=== PATIENT | female | born 1940 | race Caucasian/White ===

== ENCOUNTER → 2017-11-09 14:18 | Outpatient (CLI) | payer MEDICARE, OTHER, SELFPAY | PROVIDERS: PCP Internal Medicine; Visit Provider Psychiatry & Neurology Psychiatry | DX: Z51.81 Encounter for therapeutic drug level monitoring (principal) | CPT/HCPCS: 93005 ==

== ENCOUNTER → 2018-08-15 09:50 | Outpatient (CLI) | payer MEDICARE, OTHER, SELFPAY ==
[2018-08-15 11:55] LABS: Add Manual Diff / Slide Review NO; Basophils Absolute Auto 100 /uL (0-100); Basophils Percent Auto 1.3 % (0-2); Eosinophils Absolute Auto 200 /uL (0-450); Eosinophils Percent Auto 4.3 % (2-4); Hematocrit 39.7 % (36-46); Hemoglobin 13.3 g/dL (12.0-16.0); Lymphocytes Absolute Auto 1100 /uL (1100-4500); Lymphocytes Percent Auto 21.8 % (25-40); Mean Corpuscular HGB Conc 33.4 % (30-36); Mean Corpuscular Hemoglobin 32.4 PG (26-34); Mean Corpuscular Volume 97.1 fL (80-100); Monocytes Absolute Auto 500 /uL (0-900); Neutrophils Absolute Auto 3300 /uL (1500-7000); Neutrophils Percent Auto 62.6 % (50-75); Platelet Count 254 X10^3/uL (150-400); Red Blood Cell Count 4.09 X10^6/uL (4.0-5.2); Red Cell Distribution Width 13.7 % (11.6-14.8); White Blood Cell Count 5.2 X10^3/uL (4.5-11.0)
[2018-08-15 12:09] LABS: Alanine Aminotransferase 29 IU/L (9-52); Albumin 4.2 g/dL (3.5-5.0); Albumin Globulin Ratio 1.5 (1.0-2.8); Alkaline Phosphatase 78 U/L (38-126); Aspartate Aminotransferase 35 IU/L (14-36); Bilirubin Total 0.6 mg/dL (0.2-1.3); Blood Urea Nitrogen 14 mg/dL (7-17); Calcium 9.5 mg/dL (8.4-10.2); Carbon Dioxide 29 mmol/L (22-32); Chloride 99 mmol/L (98-107); Cholesterol 298 mg/dL (140-199); Estimated Glomerular Filt Rate > 60.0 mL/min (>60); Globulin 2.8 g/dL (1.7-4.1); Glucose 82 mg/dL (80-110); HDL Cholesterol 101 mg/dL (40-60); HEMOLYSIS < 15 (0-50); LDL Cholesterol Calculated 185 mg/dL (<100); Potassium 3.9 mmol/L (3.4-5.1); Sodium 135 mmol/L (137-145); Triglycerides 62 mg/dL (35-150)
[2018-08-15 12:49] LABS: Thyroid Stimulating Hormone 0.32 uIU/mL (0.47-4.68)
[2018-08-15 12:55] LABS: Vitamin B12 > 1000 pg/mL (239-931)
[2018-08-16 15:07] LABS: RPR Screen Nonreactive (Nonreactive)
== END ==
PROVIDERS: PCP Internal Medicine; Visit Provider Internal Medicine
DX: R41.3 Other amnesia (principal); R07.9 Chest pain, unspecified
CPT/HCPCS: 36415; 80053; 80061; 82607; 84443; 85025; 86592

== ENCOUNTER → 2018-08-17 13:31 | Outpatient (CLI) | payer MEDICARE, OTHER, SELFPAY | PROVIDERS: PCP Internal Medicine; Visit Provider Internal Medicine | DX: M81.0 Age-related osteoporosis without current pathological fracture (principal); Z78.0 Asymptomatic menopausal state; E07.9 Disorder of thyroid, unspecified | CPT/HCPCS: 77080 ==

== ENCOUNTER → 2018-09-05 11:22 | Outpatient (CLI) | payer MEDICARE, OTHER, SELFPAY ==
--- NOTE | 2018-09-05 | DI.MG.S_ITS ---
BILATERAL DIGITAL SCREENING MAMMOGRAM 3D/2D WITH CAD: 09/05/2018 CLINICAL: Routine screening. Comparison is made to exams dated: 03/15/2014 mammogram, 02/07/2013 mammogram, and 02/01/2013 mammogram - [facility]. There are scattered fibroglandular elements in both breasts. Current study was also evaluated with a Computer Aided Detection (CAD) system. There is a mole marker on the right breast. No significant masses, calcifications, or other findings are seen in either breast. There has been no significant interval change. IMPRESSION: NEGATIVE There is no mammographic evidence of malignancy. A 1 year screening mammogram is recommended. This exam was interpreted at Station ID: [id number]. NOTE: For mammograms, a report in lay terms will be sent to the patient. Approximately 15% of breast malignancies will not be visualized mammographically. In the management of a palpable breast mass, a negative mammogram must not discourage biopsy of a clinically suspicious lesion. Electronically Signed By: Fran edwards/mitch:09/05/2018 16:46:56 letter sent: Normal Exam ACR BI-RADS Category 1: Negative [id number]
== END ==
PROVIDERS: PCP Internal Medicine; Visit Provider Internal Medicine
DX: Z12.31 Encounter for screening mammogram for malignant neoplasm of breast (principal)
CPT/HCPCS: 77063; 77067

== ENCOUNTER → 2018-10-28 14:15 | Outpatient (CLI) | payer MEDICARE, OTHER, SELFPAY ==
--- NOTE | 2018-10-28 | DI.RAD.S_ITS ---
PROCEDURE: XR SHOULDER RT MIN 2V INDICATIONS: Biceps tendinitis of rt upper extremity TECHNIQUE: 3 views of the shoulder were acquired. COMPARISON: [facility], , SHOULDER MINIMUM 2VIEW RIGHT, 11/29/2016, 12:45. FINDINGS: Bones: No fractures or dislocations. No suspicious bony lesions. Visualized ribs appear intact. The mild to moderate degenerative changes of the right shoulder joints are present. Widening of the acromioclavicular joint appears to be present. Soft tissues: No suspicious soft tissue calcifications. IMPRESSION: 1. Mild to moderate degenerative changes of the right shoulder joints. 2. 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 Dictated by: Kar George M.D. on 10/28/2018 at 13:54 Approved by: Kar George M.D. on 10/28/2018 at 13:55
== END ==
PROVIDERS: PCP Internal Medicine; Visit Provider Internal Medicine
DX: M75.21 Bicipital tendinitis, right shoulder (principal); M19.011 Primary osteoarthritis, right shoulder
CPT/HCPCS: 73030

== ENCOUNTER → 2019-03-09 15:21 | Outpatient (ROUT) | payer MEDICARE, OTHER, SELFPAY | PROVIDERS: PCP Internal Medicine; Visit Provider Internal Medicine | DX: B02.9 Zoster without complications (principal) | CPT/HCPCS: 87254 ==

== ENCOUNTER → 2020-01-29 12:56 | Outpatient (CLI) | payer MEDICARE, OTHER, SELFPAY ==
[2020-01-29 15:20] LABS: Alanine Aminotransferase 25 IU/L (<35); Albumin 4.2 g/dL (3.5-5.0); Albumin Globulin Ratio 1.6 (1.0-2.8); Alkaline Phosphatase 91 U/L (38-126); Aspartate Aminotransferase 38 IU/L (14-36); BUN Creatinine Ratio 16.9 (6-22); Bilirubin Total 0.6 mg/dL (0.2-1.3); Blood Urea Nitrogen 13 mg/dL (7-17); Calcium 9.5 mg/dL (8.4-10.2); Carbon Dioxide 27 mmol/L (22-32); Chloride 99 mmol/L (98-107); Estimated Glomerular Filt Rate > 60.0 mL/min (>60); Globulin 2.6 g/dL (1.7-4.1); Glucose 105 mg/dL (80-110); HEMOLYSIS < 15 (0-50); Potassium 4.3 mmol/L (3.4-5.1); Sodium 132 mmol/L (137-145); Total Protein 6.8 g/dL (6.3-8.2)
[2020-01-29 15:51] LABS: Thyroid Stimulating Hormone 0.604 uIU/mL (0.47-4.68)
[2020-01-31 09:09] LABS: Lamotrigine Lamictal 3.6 ug/mL (2.0-20.0)
== END ==
PROVIDERS: PCP Internal Medicine; Referring Provider Psychiatry & Neurology Psychiatry; Visit Provider Psychiatry & Neurology Psychiatry
DX: F32.9 Major depressive disorder, single episode, unspecified (principal); Z79.899 Other long term (current) drug therapy
CPT/HCPCS: 36415; 80053; 80175; 84443

== ENCOUNTER → 2020-04-08 13:11 | Outpatient (CLI) | payer MEDICARE, OTHER, SELFPAY ==
[2020-04-08 14:59] LABS: Add Manual Diff / Slide Review NO; Basophils Absolute Auto 100 /uL (0-100); Basophils Percent Auto 1.3 % (0-2); Eosinophils Absolute Auto 100 /uL (0-450); Eosinophils Percent Auto 2.3 % (2-4); Hematocrit 39.9 % (36-46); Hemoglobin 13.1 g/dL (12.0-16.0); Lymphocytes Absolute Auto 1300 /uL (1100-4500); Lymphocytes Percent Auto 25.6 % (25-40); Mean Corpuscular HGB Conc 32.9 % (30-36); Mean Corpuscular Hemoglobin 31.9 PG (26-34); Monocytes Absolute Auto 500 /uL (0-900); Monocytes Percent Auto 9.4 % (3-14); Neutrophils Absolute Auto 3100 /uL (1500-7000); Neutrophils Percent Auto 61.4 % (50-75); Platelet Count 266 X10^3/uL (150-400); Red Blood Cell Count 4.12 X10^6/uL (4.0-5.2); Red Cell Distribution Width 13.4 % (11.6-14.8)
[2020-04-08 16:49] LABS: Vitamin B12 929 pg/mL (239-931)
[2020-04-09 08:09] LABS: RPR Screen Non Reactive (Non Reactive)
[2020-04-09 15:52] LABS: Osmolality, Serum 289 mOsmol/kg (280-301)
[2020-04-10 14:17] LABS: Osmolality Urine 474 mOsmol/kg (.)
== END ==
PROVIDERS: PCP Internal Medicine; Referring Provider Internal Medicine; Visit Provider Internal Medicine
DX: R41.3 Other amnesia (principal); E87.1 Hypo-osmolality and hyponatremia; E78.1 Pure hyperglyceridemia
CPT/HCPCS: 36415; 82607; 83930; 83935; 85025; 86592

== ENCOUNTER → 2020-04-09 14:16 | Outpatient (CLI) | payer MEDICARE, OTHER, SELFPAY ==
[2020-04-09 16:12] LABS: Sodium Urine Random 89 mmol/L (30-90)
[2020-04-17 14:08] LABS: Osmolality Urine 565 mOsmol/kg (.)
== END ==
PROVIDERS: PCP Internal Medicine; Referring Provider Internal Medicine; Visit Provider Internal Medicine
DX: E87.1 Hypo-osmolality and hyponatremia (principal); R41.3 Other amnesia; L98.9 Disorder of the skin and subcutaneous tissue, unspecified
CPT/HCPCS: 83935; 84300

== ENCOUNTER 2020-09-23 09:47 | Emergency (ER) | payer MEDICARE, OTHER, SELFPAY ==
--- NOTE | 2020-09-23 09:50 | ED.FALL ---
HPI - Fall General Chief Complaint: Fall Stated Complaint: Fell on face at dentist office.. Time Seen by Provider: 09/23/20 09:50 Source: patient Mode of arrival: Ambulatory Limitations: no limitations History of Present Illness HPI Narrative: 80-year-old female nonsmoker with history of hypothyroidism presents with a chief complaint of a ground level fall and facial injuries with dental injury just prior to arrival. Patient was leaving her dentist when she stubbed her toe on an uneven spot of concrete fell forward striking her face and suffering injuries to her upper teeth. She does not take any blood thinners and did not suffer loss of consciousness. She has had no blurred vision or trouble with speech. She denies any bloody nose. She has had no chest pain or shortness of breath. She denies any extremity injuries. She was initially evaluated by EMS and taken directly into the dentist's office for evaluation. After their evaluation there was concern for the possibility of an alveolar ridge injury at which point they contacted Dr. Perez who requested the patient be sent here for evaluation. Related Data Home Medications Medication Instructions Recorded Confirmed vitamin D3-folic acid [Ciferex] #0 03/19/16 03/07/20 levothyroxine 75 mcg tablet PO 90 Days #90 tab 11/09/17 03/07/20 Fish Oil See Rx Instructions .ROUTE .COMPLEX 04/17/19 03/07/20 vitamin B complex 1 tab PO DAILY 04/17/19 03/07/20 Previous Rx's Medication Instructions Recorded bupropion HCl 75 mg PO BIDP PRN #15 tab 08/13/16 citalopram 10 mg tablet 10 mg PO BID #180 tab 03/07/20 lamotrigine 100 mg tablet 100 mg PO TID #270 tab 03/07/20 Allergies Allergy/AdvReac Type Severity Reaction Status Date / Time No Known Drug Allergies Allergy Verified 09/23/20 10:03 Review of Systems Constitutional Constitutional: Denies chills, Denies fatigue, Denies fever(s), Denies frequent falls, Denies lethargy and Denies weakness Eyes Eyes: Denies change in vision, Denies eye discharge, Denies irritation and Denies loss of vision ENT Ears, Nose, Mouth, and Throat: Denies change in voice, Reports dental pain, Denies dizziness, Reports facial pain, Denies neck pain, Denies sore throat and Denies throat swelling Cardiovascular Cardiovascular: Denies chest pain, Denies irregular heart rhythm, Denies lightheadedness, Denies palpitations, Denies dyspnea, Denies dyspnea on exertion and Denies orthopnea Respiratory Respiratory: Denies cough, Denies dyspnea, Denies dyspnea on exertion and Denies wheezing Gastrointestinal Gastrointestinal: Denies abdominal pain, Denies change in bowel habits, Denies diarrhea, Denies nausea and Denies vomiting Musculoskeletal Musculoskeletal: Denies neck pain and Denies numbness Integumentary/Breasts Skin/Breast: Denies pruritus, Denies erythema, Denies rash and Denies wounds Neurologic Neurologic: Denies behavioral changes, Denies confusion, Denies dizziness, Denies frequent falls, Denies loss of vision, Denies numbness and Denies weakness Psychiatric Psychiatric: Denies anxiety, Denies behavioral changes, Denies confusion, Denies depression, Denies homicidal ideation and Denies suicidal ideation Endocrine Endocrine: Denies fatigue, Denies flushing and Denies palpitations Hematologic/Lymphatic Hematologic/Lymphatic: Denies easy bruising Allergic/Immunologic Allergic/Immunologic: Denies urticaria, Denies throat swelling and Denies wheezing Patient History Social History Smoking Status: Never smoker Smoking Status: Never smoker Exam Narrative Exam Narrative: GEN: AOx3 and in mild distress, GCS 15 EYES: Pupils are equal, round, and reactive to light and accommodation. Extraoccular muscles are intact bilaterally. There is no subconjunctival hemorrhage or exudate. ENT: dried blood and tenderness to upper lip. Avulsed tooth #7, fractured #9 with subluxation CHEST: Lungs are clear to auscultation bilaterally and free of wheezes, rales, or rhonchi. Heart rate is regular rhythm, there are no murmurs, clicks, rubs, or gallops. There is no chest wall tenderness. ABD: Abdomen is soft and nontender. There is no guarding or rebound. Bowel sounds are normal in all 4 quadrants. There is no mass or organomegaly. EXT: Full painless ROM of all extremities with no loss of sensation or strength. SKIN: Warm, pink, and dry. No erythema or rash Initial Vital Signs Initial Vital Signs: Vital Signs Temperature 98.0 F 09/23/20 09:58 Pulse Rate 74 09/23/20 09:58 Respiratory Rate 14 09/23/20 09:58 Blood Pressure 184/82 H 09/23/20 09:58 Pulse Oximetry 99 09/23/20 09:58 Course Course Course Narrative: Calls to Dr. Perez and his request was to perform facial bone CT. Upon receipt of these images a called him back and he was happy to receive the patient in his office Orders Ordered: ED Orders 09/23/20 11:26 CT facial bones wo con Stat CT head/brain wo con Stat Vital Signs Vital signs: Vital Signs - 8 hr 09/23/20 09:58 Temperature 98.0 F Pulse Rate 74 Respiratory Rate 14 Blood Pressure 184/82 H Pulse Oximetry 99 MDM - Fall Imaging Data CT scan - head: Radiologist's Impression: [address] [id number] Scan ReportSigned Patient: Mary Elizalde EMR#: [id number]: 9Acct:[id number]/Sex: 80 / FDate of Service: 09/23/20Loc: EDAccession Number: [id number] Procedure: CT head/brain wo con Ordering Provider: Escobra Haji D.O. PROCEDURE: CT HEAD/BRAIN WO CON INDICATIONS: fall with head and facial injury TECHNIQUE: Noncontrast 4.5 mm thick angled axial sections acquired from the foramen magnum to the vertex, with coronal and sagittal reformats. For radiation dose reduction, the following was used: automated exposure control, adjustment of mA and/or kV according to patient size. COMPARISON: [facility], CT, CT FACIAL BONES WO CON, 09/23/2020, 11:38. FINDINGS: Image quality: Excellent. CSF spaces: Basal cisterns are patent. No extra-axial fluid collections. The ventricles are symmetric in size and shape. Brain: No intracranial bleeds or masses. There is cerebral volume loss for age, with resultant ventricular and sulcal prominence. There are periventricular and deep white matter chronic small vessel ischemic changes. There is intracranial internal carotid artery atherosclerosis. Skull and face: Calvarium and visualized facial bones appear intact, without suspicious lesions. Sinuses: Visualized sinuses and mastoids are clear. IMPRESSION: 1. No acute intracranial process. 2. Mild to moderate atrophy and chronic microvascular ischemic changes. Dictated by: Liz Recio M.D. on 09/23/2020 at 11:50 Approved by: Liz Recio M.D. on 09/23/2020 at 12:20 Facial Bones: Radiologist's Impression: [address] [id number] Scan ReportSigned Patient: Mary Elizalde EMR#: [id number]: 1938cct:[id number]/Sex: 80 / FDate of Service: 09/23/20Loc: EDAccession Number: [id number] Procedure: CT head/brain wo con Ordering Provider: Escobar Haji D.O. PROCEDURE: CT HEAD/BRAIN WO CON INDICATIONS: fall with head and facial injury TECHNIQUE: Noncontrast 4.5 mm thick angled axial sections acquired from the foramen magnum to the vertex, with coronal and sagittal reformats. For radiation dose reduction, the following was used: automated exposure control, adjustment of mA and/or kV according to patient size. COMPARISON: [facility], CT, CT FACIAL BONES WO CON, 09/23/2020, 11:38. FINDINGS: Image quality: Excellent. CSF spaces: Basal cisterns are patent. No extra-axial fluid collections. The ventricles are symmetric in size and shape. Brain: No intracranial bleeds or masses. There is cerebral volume loss for age, with resultant ventricular and sulcal prominence. There are periventricular and deep white matter chronic small vessel ischemic changes. There is intracranial internal carotid artery atherosclerosis. Skull and face: Calvarium and visualized facial bones appear intact, without suspicious lesions. Sinuses: Visualized sinuses and mastoids are clear. IMPRESSION: 1. No acute intracranial process. 2. Mild to moderate atrophy and chronic microvascular ischemic changes. Dictated by: Liz Recio M.D. on 09/23/2020 at 11:50 Approved by: Liz Recio M.D. on 09/23/2020 at 12:20 Discharge Plan Departure Patient Disposition: Home Clinical Impression: Dental alveolar anomalies Instructions: How to Prevent Falls Activity Restrictions/Additional Instructions: *You have been diagnosed with [dental injury from fall] *What to do: *Take medications as directed * please present directly from here to Dr. Perez's office Prescriptions: No Action levothyroxine 75 mcg tablet PO 90 Days Qty: 90 RF: 0 vitamin B complex Tablet 1 tab PO DAILY RF: 0 lamotrigine [Lamictal] 100 mg tablet 100 mg PO TID Qty: 270 RF: 3 citalopram [Celexa] 10 mg tablet 10 mg PO BID Qty: 180 RF: 1 vitamin D3-folic acid [Ciferex] 3,775 UNITS/1 MG capsule Qty: 0 RF: 0 bupropion HCl 75 MG tablet 75 mg PO BIDP PRNQty: 15 RF: 3 Fish Oil See Rx Instructions .ROUTE .COMPLEX RF: 0 Referrals: Alexy Perez DMD [Physician] - Tasia Clements MD [Primary Care Provider] -
[2020-09-23 09:58] VITALS: BP 184/82; PULSE 74; RESP 14; TEMP 36.7; O2SAT 99; BMI 19.3
--- NOTE | 2020-09-23 10:44 | PC.NURSE ---
patient has made multiple trips from room to nurses station wondering why we are not doing anything. Nurse, TIRE SERVICE SUPERVISOR/SCALER, and provider have all explained the oral surgeon was called withing minutes of arrival and is in a procedure at the moment. His staff states he will call as soon as he is done with the procedure. Patient verbalized understanding of the doctors explanation and returned to the room.
--- NOTE | 2020-09-23 11:26 | DI.CT.S_ITS ---
PROCEDURE: CT FACIAL BONES WO CON INDICATIONS: fall with facial injury, per OMFS TECHNIQUE: Noncontrast 2.5 mm thick axial images acquired from the mandible through the frontal sinuses, with coronal and sagittal reformatting. For radiation dose reduction, the following was used: automated exposure control, adjustment of mA and/or kV according to patient size. COMPARISON: None. FINDINGS: Image quality: Excellent. Bones and teeth: Orbital turner are intact. Sinus turner show no fracture or deformity. Nasal bones and septum are intact. Visualized portions of the mandible demonstrate no fractures or subluxation. Zygomatic arches are intact. Pterygoid plates are intact. Visualized portions of the skull base and auditory canals are intact. Sinuses: Paranasal sinuses are aerated, without fluid levels, mucosal thickening, or mucoceles. Mastoid air cells are aerated. Soft tissues: No edema, masses, or fluid collections. No enlarged lymph nodes. Small tissue laceration is noted at the upper lip. Vascular: Visualized vascular structures appear normal in the absence of contrast. Bony vascular foramina and canals are intact. IMPRESSION: No visualized fracture. Upper left soft tissue laceration is noted. Dictated by: Liz Recio M.D. on 09/23/2020 at 12:21 Approved by: Liz Recio M.D. on 09/23/2020 at 12:23
--- NOTE | 2020-09-23 11:26 | DI.CT.S_ITS ---
PROCEDURE: CT HEAD/BRAIN WO CON INDICATIONS: fall with head and facial injury TECHNIQUE: Noncontrast 4.5 mm thick angled axial sections acquired from the foramen magnum to the vertex, with coronal and sagittal reformats. For radiation dose reduction, the following was used: automated exposure control, adjustment of mA and/or kV according to patient size. COMPARISON: [facility], CT, CT FACIAL BONES WO CON, 09/23/2020, 11:38. FINDINGS: Image quality: Excellent. CSF spaces: Basal cisterns are patent. No extra-axial fluid collections. The ventricles are symmetric in size and shape. Brain: No intracranial bleeds or masses. There is cerebral volume loss for age, with resultant ventricular and sulcal prominence. There are periventricular and deep white matter chronic small vessel ischemic changes. There is intracranial internal carotid artery atherosclerosis. Skull and face: Calvarium and visualized facial bones appear intact, without suspicious lesions. Sinuses: Visualized sinuses and mastoids are clear. IMPRESSION: 1. No acute intracranial process. 2. Mild to moderate atrophy and chronic microvascular ischemic changes. Dictated by: Liz Recio M.D. on 09/23/2020 at 11:50 Approved by: Liz Recio M.D. on 09/23/2020 at 12:20
== END 2020-09-23 13:40 | disposition home or self-care (01) ==
PROVIDERS: Emergency Provider Emergency Medicine; PCP Internal Medicine
DX: M26.70 Unspecified alveolar anomaly (principal); K08.89 Other specified disorders of teeth and supporting structures; S09.90XA Unspecified injury of head, initial encounter; W19.XXXA Unspecified fall, initial encounter
CPT/HCPCS: 70450; 70486; 99283; 99284

== ENCOUNTER → 2020-10-01 14:32 | Outpatient (CLI) | payer MEDICARE, OTHER, SELFPAY | PROVIDERS: PCP Internal Medicine; Referring Provider Internal Medicine; Visit Provider Internal Medicine | DX: M81.0 Age-related osteoporosis without current pathological fracture (principal); Z78.0 Asymptomatic menopausal state; E07.9 Disorder of thyroid, unspecified | CPT/HCPCS: 77080 ==

== ENCOUNTER → 2020-10-10 19:30 | Outpatient (ROUT) | payer MEDICARE, OTHER, SELFPAY | PROVIDERS: PCP Internal Medicine; Visit Provider Internal Medicine | DX: N39.0 Urinary tract infection, site not specified (principal) | CPT/HCPCS: 87077; 87086; 87186 ==

== ENCOUNTER 2020-11-04 13:45 | Outpatient (RCR) | payer MEDICARE, OTHER, SELFPAY ==
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
--- NOTE | 2020-10-21 16:47 | PT.OPPOC ---
Physical, Occupational & Speech Therapy At [facility] Current Diagnoses Repeated falls (10/21/20) Visit Care Team Role Provider Type Nilda Guidry MD Attending Provider Physician Primary Care Provider Referring Provider Specialty: Internal Medicine Address: [address] [place] [address], [id number] Email: [email or web address] Plan Of Care PT-OP-T Assessment and Plan Start: 10/16/20 09:51 Freq: Status: Active Protocol: Document 10/16/20 10:30 [facility] (Rec: 10/21/20 12:26 [facility] [email or web address]) Physical Therapy Assessment Rehab Potential Rehabilitation Potential Good Impairments Impairments Activity Tolerance,Balance, Functional Activities,Posture, ROM,Soft Tissue Mobility, Strength Goals left sided gluteal weakness Impairment left sided gluteal weakness Short Term Goal (STG) Mary is able to balance single leg stance on the left without a gluteus medius drop STG Duration 4 weeks Correction Goal (LTG) Improve gluteus medius strength on the left from 3/5 to 4/5 or better LTG Duration 8 weeks difficulty with head turns with gait Impairment difficulty with head turns with gait Wind Turbine Installer Goal (LTG) Mary is able to demonstrate no loss of balance with gait and head turns LTG Duration 8 weeks 17/28 on the tinetti balance assessment tool Impairment Tinetti balance assessment tool Wind Turbine Installer Goal (LTG) Mary will be able to increase her score from 17/28 to 20 or greater on the Tinetti balance assessment tool LTG Duration 8 weeks Assessment Summary Assessment Mary Amado is a 80 year old female referred to PT for frequent falls. Ingris currently resides in [facility]. Ingris reports losing her balance while watching as she likes to people watch and gets distracted. She also reports people tell her to slow down when walking. With gait and balance assessment today her Tinetti balance score for static balance is 13/16. It is with dynamic balance activities such as turning and walking that she tends to lose balance with. She has a scoliosis curve with a lateral trunk and neck lean to the right which also shifts her center of balance. She is weaker in her left gluteus medius as compared to her right. She does have a lift in her right shoe. She is not currently using any assistive device to ambulate but has had several falls recently and one being with walking. Her daughter had purchased her walking sticks and today I fitted these for her. She actually did better with just one in her left hand and I assisted in training her on using the walking stick with gait. Ingris is a good candidate for PT and treatment will include gait training, balance training, LE strengthening, and stretches for the lateral trunk lean. Physical Therapy Plan Frequency and Duration Frequency of Treatment 2x/Week Duration of Treatment 8 Plan of Care Start Date 10/16/20 Plan of Care End Date 12/11/20 Therapeutic Interventions Therapeutic Interventions Balance Training,Gait Training ,Home Exercise Program,Patient /Caregiver Education, Therapeutic Exercises Next Visit Focus/Plan Next Note Type Treatment Note Next Visit Plan Review gait with the walking stick in the left hand, begin balance and strengthening exercises. Plan of Care Dates Plan of Care Start Date 10/16/20 Plan of Care End Date 12/11/20 Electronically Signed by: Randee Arango, PT 10/21/20 1855 Please Sign and Return: I have reviewed this Plan of Care and certify that the skilled therapy services above are required to meet the patient?s needs. Physician Signature Date Printed Name and Credentials Clinical Instructor Signature Printed Name and Credentials
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
--- NOTE | 2020-10-27 14:47 | PT-OP ANOTE ---
Pt did not show for today's appt, when called she stated forgot to look at her appt calendar today, was thinking her appt was tomorrow. Pt confirmed rest of appts scheduled. She stated is compliant with her exercises.
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
--- NOTE | 2020-11-04 13:48 | PT-OP ANOTE ---
Pt did not show for today's appt. MATERIAL CLERK called her and she forgot, she confirmed Fri 11/07 at 230 as her next appt. She also stated has an appt on and not sure how will feel after, MATERIAL CLERK recommended is not feeling and need to cancel fri appt to call and cancel as soon as can, she verbalized understanding.
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
== END 2020-12-11 15:22 | disposition home or self-care (01) ==
LOC: PHYS 13:45
PROVIDERS: PCP Internal Medicine; Referring Provider Internal Medicine; Visit Provider Internal Medicine
DX: R29.6 Repeated falls (principal)
CPT/HCPCS: 97110; 97112; 97116; 97161